=== PATIENT | male | born 1980 | race Caucasian/White ===

== ENCOUNTER 2017-08-31 21:10 | Emergency (ER) | payer OTHER ==
[~2017-08-31] VITALS: Ht 188 cm; Wt 142.9 kg
[2017-08-31] MEDS ORDERED: HYDROCODONE/APAP 10MG-325MG TAB PO ONE (21:45)
[2017-08-31] MEDS ORDERED: LIDOCAINE HCL 2% LOCAL 20 ML VIAL INJ ONE (21:45)
[2017-08-31] MEDS ORDERED: TETANUS/DIPHTHERIA TOX ADULT 0.5 ML SYR IM ONE (21:45)
[2017-08-31] MEDS ORDERED: HYDROCODONE/APAP 10MG-325MG TAB ONE (21:50)
[2017-08-31] MEDS ORDERED: HYDROCODONE/APAP 10MG-325MG TAB PO NR (22:00)
[2017-08-31] MEDS ORDERED: LIDOCAINE HCL 1% LOCAL INJ 20 ML VIAL ONE (22:07)
--- NOTE | 2017-08-31 23:01 | Diagnostic Imaging Report ---
EXAM: FINGER LEFT, AP, lateral and oblique INDICATION: Smashed tip of finger in door COMPARISON: None FINDINGS: BONES: Acute, minimally displaced fracture through the base of the third digit distal phalanx. JOINTS: No malalignment. SOFT TISSUES: Soft tissue swelling and irregularity of the third digit distally. IMPRESSION: Acute, minimally displaced fracture through the base of the third digit distal phalanx. Signed by: Dr. Rain Mckeon M.D. on 08/31/2017 10:57 PM
[2017-08-31] MEDS ORDERED: AMOXICILLIN/CLAVULANATE K 875 MG TAB PO STA (23:08)
[2017-08-31 23:40] VITALS: BP 132/72
== END 2017-08-31 23:55 | disposition home or self-care (01) ==
LOC: ER 21:10
DX: S67.193A Crushing injury of left middle finger, initial encounter (principal); S62.663B Nondisplaced fracture of distal phalanx of left middle finger, initial encounter for open fracture; W23.1XXA Caught, crushed, jammed, or pinched between stationary objects, initial encounter; Y92.488 Other paved roadways as the place of occurrence of the external cause
CPT/HCPCS: 12002; 29130; 73140; 90471; 90714; 99283; J2001